=== PATIENT | female | born 1980 | race Caucasian/White ===

== ENCOUNTER 2019-03-18 12:30 | Emergency (ER) | payer SELFPAY ==
[2019-03-18] MEDS: DIPHENHYDRAMINE 50 MG INJ IV (13:23)
[2019-03-18] MEDS: SOD CHLORIDE 0.9% 1,000 ML IV (13:23)
[2019-03-18] MEDS: PROCHLORPERAZINE 10 MG INJ IV (13:23)
[2019-03-18] MEDS: morphine 4 MG/ML VIAL IV (13:23)
== END 2019-03-18 15:44 | disposition home or self-care (01) ==
LOC: E/R 12:30
DX: R51 Headache (principal); R40.2142 Coma scale, eyes open, spontaneous, at arrival to emergency department; R40.2252 Coma scale, best verbal response, oriented, at arrival to emergency department; R40.2362 Coma scale, best motor response, obeys commands, at arrival to emergency department
CPT/HCPCS: 70450; 72125; 73130-LT; 81025; 96361; 96374; 96375; 99285-25